=== PATIENT | female | born 1950 | race Asian ===

== ENCOUNTER 2023-03-26 11:23 | Emergency (ER) | payer OTHER ==
[~2023-03-26] VITALS: Ht 165.1 cm; Wt 75.0 kg
[2023-03-26 11:26] VITALS: BP 146/85; PULSE 66; RESP 16; TEMP 98.5; O2SAT 100
[2023-03-26] MEDS ORDERED: IBUP-2029 MT (12:18)
[2023-03-26] MEDS ORDERED: LIDO700A30 TP (12:20)
== END 2023-03-26 12:59 | disposition home or self-care (01) ==
LOC: ER 12:10
DX: S22.31XA Fracture of one rib, right side, initial encounter for closed fracture (principal); S43.491A Other sprain of right shoulder joint, initial encounter; W19.XXXA Unspecified fall, initial encounter; Y93.89 Activity, other specified; Y92.89 Other specified places as the place of occurrence of the external cause; Y99.8 Other external cause status
CPT/HCPCS: 73030; 99283; A4565